=== PATIENT | female | born 1935 | race Caucasian/White ===

== ENCOUNTER 2017-04-20 14:44 | Emergency (ER) | payer OTHER ==
[~2017-04-20] VITALS: Ht 157.5 cm; Wt 61.2 kg
[~2017-04-20 14:44] MED LIST: HYDR12.56
[2017-04-20 15:33] LABS: Basophils # (auto) 0 uL; Basophils % (auto) 0.8 % (0.0-2.0); Eosinophils # (auto) 0 uL; Eosinophils % (auto) 0.7 % (0.0-7.0); Hematocrit 41.6 % (36.0-46.0); Hemoglobin 14.1 g/dL (12.2-16.2); Lymphocytes # (auto) 0.9 uL; Lymphocytes % (auto) 16.7 % (10.0-50.0); Mean Corpuscular Hemoglobin 29.7 pg (28.0-32.0); Mean Corpuscular Hgb Conc. 33.9 g/dL (32.0-36.0); Mean Corpuscular Volume 87.6 fL (80.0-100.0); Monocytes # (auto) 0.5 uL; Monocytes % (auto) 9.9 % (0.0-12.0); Neutrophils # (auto) 3.7 uL; Neutrophils % (auto) 71.9 % (37.0-80.0); Platelet Count (auto) 183 10^3/uL (140-450); Red Cell Distribution Width 14.4 % (11.6-16.0); White Blood Cell 5.2 10^3/uL (4.4-10.8)
[2017-04-20 15:49] LABS: Albumin 3.8 g/dL (3.4-5.0); BUN/Creatinine Ratio 25.5; Calcium 8.9 mg/dL (8.5-10.1); Potassium 3.7 mmol/L (3.5-5.1)
[2017-04-20 15:51] LABS: Bilirubin, Total 0.4 mg/dL (0.2-1.0); Total Protein 7.3 g/dL (6.4-8.2)
[2017-04-20 20:22] VITALS: BP 186/73
[2017-04-20 21:12] LABS: INR 0.97 (0.9-1.15); Prothrombin Time 10.6 sec (9.37-12.3)
== END 2017-04-20 22:51 | disposition home or self-care (01) ==
LOC: ER 14:46
DX: R04.0 Epistaxis (principal); I10 Essential (primary) hypertension; R51 Headache; Z86.73 Personal history of transient ischemic attack (TIA), and cerebral infarction without residual deficits; E78.5 Hyperlipidemia, unspecified; I25.2 Old myocardial infarction; Z95.1 Presence of aortocoronary bypass graft; Z90.710 Acquired absence of both cervix and uterus
CPT/HCPCS: 36415; 70450; 80053; 85025; 85610

== ENCOUNTER 2019-09-03 13:42 | Emergency (ER) | payer MEDICARE, OTHER ==
[~2019-09-03] VITALS: Ht 162.6 cm; Wt 63.5 kg
[2019-09-03 15:10] VITALS: BP 156/78
== END 2019-09-03 17:25 | disposition left against medical advice (07) ==
LOC: EDBD 13:42 → ER 13:42
DX: R51 Headache (principal); Z53.21 Procedure and treatment not carried out due to patient leaving prior to being seen by health care provider